=== PATIENT | male | born 1995 | race Caucasian/White ===

== ENCOUNTER 2016-08-28 01:57 | Emergency (ER) | payer OTHER ==
[2016-08-28] MEDS ORDERED: IBUPROFEN 600 MG TABLET ONE (02:49)
[2016-08-28] MEDS ORDERED: ACETAMINOPHEN 325 MG TABLET ONE (02:50)
== END 2016-08-29 01:34 | disposition home or self-care (01) ==
LOC: ED 01:57
DX: J06.9 Acute upper respiratory infection, unspecified (principal)